=== PATIENT | female | born 1980 | race Caucasian/White ===

== ENCOUNTER → 2016-06-14 | Outpatient (CLI) | payer BC ==
[~2016-06-14] MED LIST: AMOXICILLIN 8751 TAB PO; DELSYM COU30 MG/5 ML PO; FLONASE NASAL S16 GM NS; LEVAQUIN 750MG750 M1 PO; LOMOTIL 0.025 M1 TAB PO; PROAIR HFA0.09 MG/AC IH; TESSALON P100 MG/CAP PO
== END ==
LOC: COL.PUL 12:28
DX: R05 Cough (principal)